=== PATIENT | female | born 1950 | race Caucasian/White ===

== ENCOUNTER 2019-03-08 08:13 | Day surgery (SDC) | payer MEDICARE, OTHER ==
[~2019-03-08] VITALS: Ht 162.6 cm; Wt 56.2 kg
[~2019-03-08 08:13] MED LIST: Armour Thyroid90 MG PO; Aspir 8181 MG PO; CELE200 PO; CHOL10002 PO; CYCLOBENZAPRIN7.5 MG PO; DIAZ10 PO; ESZO3 PO; GABA100 PO; HYDR1TAB94 PO; Hair, Skin & N1 EACH PO; Percocet 10-321 EACH PO; THYR60 PO; TOCO400 PO; Vitamin C100 M1 PO
[2019-03-08] MEDS ORDERED: ASPI81CH (08:36)
[2019-03-08] MEDS ORDERED: CYCL10 (08:36)
[2019-03-08] MEDS ORDERED: BUPR150ER (08:36)
[2019-03-08] MEDS ORDERED: TRAM50 (08:36)
== END 2019-03-08 10:22 | disposition home or self-care (01) ==
LOC: ORSCSDS 08:13
PROVIDERS: Internal Medicine Gastroenterology
PROC: 0DBK8ZX Excision of Ascending Colon, Via Natural or Artificial Opening Endoscopic, Diagnostic (ICD-10-PCS; principal; 2019-03-08 09:30)
PROC: 0DBL8ZX Excision of Transverse Colon, Via Natural or Artificial Opening Endoscopic, Diagnostic (ICD-10-PCS; principal; 2019-03-08 09:30)
PROC: 0DBM8ZX Excision of Descending Colon, Via Natural or Artificial Opening Endoscopic, Diagnostic (ICD-10-PCS; principal; 2019-03-08 09:30)
DX: Z12.11 Encounter for screening for malignant neoplasm of colon (principal); D12.3 Benign neoplasm of transverse colon; D12.2 Benign neoplasm of ascending colon; D12.4 Benign neoplasm of descending colon; K57.30 Diverticulosis of large intestine without perforation or abscess without bleeding; K64.8 Other hemorrhoids; M79.7 Fibromyalgia; Z79.899 Other long term (current) drug therapy
CPT/HCPCS: 88305; J0330; J0461; J2250; J2405; J2704; J7120

== ENCOUNTER 2019-10-07 19:58 | Emergency (ER) | payer MEDICARE, OTHER ==
[~2019-10-07] VITALS: Ht 162.6 cm; Wt 59.0 kg
[~2019-10-07 19:58] MED LIST changes: +ASPI81CH; +BUPR150ER; +CYCL10; +TRAM50
== END 2019-10-07 21:29 | disposition home or self-care (01) ==
LOC: ER 19:58
DX: G43.909 Migraine, unspecified, not intractable, without status migrainosus (principal); M79.7 Fibromyalgia; Z88.8 Allergy status to other drugs, medicaments and biological substances; Z79.899 Other long term (current) drug therapy
CPT/HCPCS: 36415; 96374; 96375; 99283-25; J0780; J1200; J1885; J7030

== ENCOUNTER → 2021-08-22 | Outpatient (CLI) | payer MEDICARE, OTHER | END | disposition home or self-care (01) | LOC: LAB SHORT 10:23 | DX: M79.606 Pain in leg, unspecified (principal) | CPT/HCPCS: 85379 ==

== ENCOUNTER 2023-09-07 18:19 | Emergency (ER) | payer MEDICARE, OTHER ==
[~2023-09-07] VITALS: Ht 162.6 cm; Wt 59.0 kg
[2023-09-07] MEDS ORDERED: CYCL10 PO (20:20)
[2023-09-07 20:55] VITALS: BP 141/68
== END 2023-09-07 21:13 | disposition home or self-care (01) ==
LOC: ER 18:19
DX: M43.6 Torticollis (principal); Z88.8 Allergy status to other drugs, medicaments and biological substances; Z88.6 Allergy status to analgesic agent; Z79.899 Other long term (current) drug therapy; Z79.82 Long term (current) use of aspirin
CPT/HCPCS: 96372; 99283-25; A9270; J1885